=== PATIENT | male | born 1960 | race Caucasian/White ===

== ENCOUNTER 2018-08-25 10:46 | Emergency (ER) | payer MEDICAID ==
[~2018-08-25] VITALS: Ht 185.4 cm; Wt 136.1 kg
[~2018-08-25 10:46] MED LIST: BENA40TA56 PO; DOXY100C PO
[2018-08-25 10:54] VITALS: BP 139/93; PULSE 108; RESP 20; Ht 185.4 cm; Wt 136.1 kg
[2018-08-25] MEDS ORDERED: CEFTRIAXONE 250 MG INJ IM ONE (12:00)
[2018-08-25] MEDS ORDERED: AZITHROMYCIN 500 MG TAB PO ONE (12:00)
[2018-08-25] MEDS ORDERED: CLOT30CR24 TOP (12:11)
--- NOTE | 2018-08-25 12:19 | ERD ---
ER Documentation Chief Complaint Chief Complaint Comp[lains of burning on urination x 1 week HPI This is a 58-year-old male with a history of hypertension presents ED with complaints of burning with urination once discharge coming from penis times 1 week. Patient states that he had a new sexual partner 2 weeks ago and engaged in risky behavior. Patient believes he has an STD and would like to be treated for gonorrhea and chlamydia. Patient denies any ulcerations on penis, scrotal pain, scrotal swelling, fever, chills, nausea, vomiting, diarrhea, constipation, abdominal pain no other symptoms. No known drug allergies. ROS All systems reviewed and are negative except as per history of present illness. Medications Home Meds Active Scripts Ciprofloxacin Hcl* (Ciprofloxacin Hcl*) 500 Mg Tablet, 500 MG PO BID for 7 Days, TAB Prov:CASSIDY HEARN PA-C 08/25/18 Clotrimazole* (Clotrimazole* AF) 1% - 30 Gm Cream.gm., 1 APPLIC TOP BID for 7 Days, TUB Prov:CASSIDY HEARN PA-C 08/25/18 Reported Medications Doxycycline* (Vibramycin*) 100 Mg Capsule, 100 MG PO DAILY, EA 02/04/14 Benazepril Hcl* (Benazepril Hcl*) 40 Mg Tablet, 40 MG PO DAILY, TAB 02/04/14 Allergies Allergies: Coded Allergies: No Known Allergy (Unverified , 08/25/18) PMhx/Soc Medical and Surgical Hx: pt denies Medical Hx, pt denies Surgical Hx History of Surgery: No Anesthesia Reaction: No Hx Neurological Disorder: No Hx Respiratory Disorders: No Hx Cardiac Disorders: No Hx Psychiatric Problems: No Hx Miscellaneous Medical Probl: No Hx Alcohol Use: No Hx Substance Use: No Hx Tobacco Use: No Smoking Status: Never smoker Physical Exam Vitals Vital Signs Date Temp Pulse Resp B/P (MAP) Pulse Ox O2 O2 Flow FiO2 Time Delivery Rate 08/25/18 98.3 108 20 139/93 99 10:54 (108) Physical Exam Physical Exam Vitals signs: Reviewed by me. General: Well developed, well nourished, in no acute distress. Patient is awake and alert. Head: Normocephalic, atraumatic. Eyes: Normal conjunctiva, Pupils PERRLA, EOM intact grossly ENT: Pharynx is clear, Moist mucous membranes, external ears, nose and mouth normal Neck: Supple, no masses, lymphadenopathy or JVD Respiratory: Clear to auscultation bilaterally with no wheezing, rhonchi, rales, no distress Cardiovascular: RRR, no murmurs, rubs, or gallops Abdominal: Soft, protuberant, obese , non-tender, non-distended, no peritoneal signs : Exam: [employer] present No penile ulcerations, when foreskin is retracted there is curdy white discharge surrounding penile head, there is no penile swelling, Scrotum: Normal Testes/Epid: Non-tender w/ normal lie Cremaster: Reflex intact Lymph: No inguinal lymphadenopathy Neurologic: Alert and oriented, moving all extremities, normal speech, no focal weakness, no cerebellar signs. Normal mentation Skin: warm and dry, No rash Psych: Normal mood Results 24 hrs Laboratory Tests Test 08/25/18 12:00 Urine Color YELLOW Urine Clarity CLEAR Urine pH 5.0 Urine Specific [place] 1.027 Urine Ketones NEGATIVE mg/dL Urine Nitrite NEGATIVE mg/dL Urine Bilirubin NEGATIVE mg/dL Urine Urobilinogen NEGATIVE mg/dL Urine Leukocyte Esterase 2+ Brandon/ul Urine Microscopic RBC 6 /HPF Urine Microscopic WBC 7 /HPF Urine Squamous Epithelial Cells FEW /HPF Urine Hemoglobin 1+ mg/dL Urine Glucose 3+ mg/dL Urine Total Protein NEGATIVE mg/dl Current Medications Medications Dose Sig/[place] Start Time Status Last (Trade) Ordered Route PRN Stop Time Admin Dose Reason Admin 1,000 mg ONCE ONCE 08/25/18 DC 08/25/18 Azithromycin PO 12:00 12:18 (Zithromax) 08/25/18 12:01 Ceftriaxone 250 mg ONCE ONCE 08/25/18 DC 08/25/18 Sodium IM 12:00 12:18 (Rocephin) 08/25/18 12:01 Lidocaine 5 ml ONCE ONCE 08/25/18 DC 08/25/18 (Xylocaine INJ 12:30 12:18 1% (Mpf)) 08/25/18 12:31 Procedures/MDM LAB INTERPRETATION: Urinalysis shows 7 WBC, RBC 6, 2+ leukocyte esterase, Urine culture pending, gonorrhea chlamydia test pending ER COURSE: The patient was given azithromycin, Rocephin The medication was well tolerated and the patient reports improvement in symptoms. The patient was stable throughout ED course. I kept the patient and/or family informed of laboratory and diagnostic imaging results throughout the emergency room course. The patient was promptly evaluated and a treatment plan was devised based on H&P and other data. This plan was discussed with the patient who agreed and had no further questions or concerns prior to discharge. MEDICAL DECISION MAKIN-year-old uncircumcised male presents ED with complaints of burning with urination and discharge from penis times 1 week. Given patient's history of risky sexual behavior in a new sexual partner patient was treated prophylactically for gonorrhea and chlamydia. Gonorrhea and chlamydia lab test is pending at this time. Patient was given Rocephin and azithromycin in the emergency department. Physical examination is remarkable for some curdy white discharge when retracting penis head. This resembles more of a balanitis. The foreskin is easily retractable and there is mild erythema of the penile head with whitish curdy discharge. Urinalysis reflects UTI. Will treat patient for UTI as well. Patient was advised to engage in safe sex practices. History and physical examination other data not consistent with emergent processes including but not limited to paraphimosis, phimosis, priapism, together torsion, among other genitourinary emergencies. Patient's vitals are stable he can be managed with close outpatient follow-up. Advised patient follow-up with primary care in the next 48 hours. Return to ED with any worsening symptoms. DISPOSITION PLAN: We discussed follow up with the patient's primary care doctor within 24 to 48 hours. Patient counseled regarding my diagnostic impression and care plan. Prior to discharge all questions answered. Pt agrees with treatment plan and understands strict return precautions. Precautionary instructions provided including instructions to return to the ER if not improving or for any worsening or changing symptoms or concerns. SPECIALIST FOLLOW UP RECOMMENDED: None Patient has been advised to follow up with primary care in 1-2 days. Disclaimer: Inadvertent spelling and grammatical errors are likely due to EHR/dictation software use and do not reflect on the overall quality of patient care. Also, please note that the electronic time recorded on this note does not necessarily reflect the actual time of the patient encounter. Departure Diagnosis: Primary Impression: Penile discharge Additional Impressions: Balanitis Exposure to STD Screen for STD (sexually transmitted disease) UTI (urinary tract infection) Urinary tract infection type: site unspecified Hematuria presence: without hematuria Qualified Codes: N39.0 - Urinary tract infection, site not specified Condition: Stable Patient Instructions: Teens: STD Symptoms in Men, Balanitis, Understanding Urinary Tract Infections (UTIs) Referrals: COMMUNITY CLINICS YOU HAVE RECEIVED A MEDICAL SCREENING EXAM AND THE RESULTS INDICATE THAT YOU DO NOT HAVE A CONDITION THAT REQUIRES URGENT TREATMENT IN THE EMERGENCY DEPARTMENT. FURTHER EVALUATION AND TREATMENT OF YOUR CONDITION CAN WAIT UNTIL YOU ARE SEEN IN YOUR DOCTORS OFFICE WITHIN THE NEXT 1-2 DAYS. IT IS YOUR RESPONSIBILITY TO MAKE AN APPOINTMENT FOR FOLOW-UP CARE. IF YOU HAVE A PRIMARY DOCTOR --you should call your primary doctor and schedule an appointment IF YOU DO NOT HAVE A PRIMARY DOCTOR YOU CAN CALL OUR PHYSICIAN REFERRAL HOTLINE AT IF YOU CAN NOT AFFORD TO SEE A PHYSICIAN YOU CAN CHOSE FROM THE FOLLOWING [facility] CLINICS [facility] [address] [facility] [address] [facility] [facility] [address] [facility] [address] [facility] [address] [facility]. [facility] [address] Additional Instructions: Patient advised to return to the ED immediately for new or worsening symptoms. Patient advised to follow up with primary care provider in the next 24-48 hours. Patient verbalized understanding and agrees with treatment plan and course of action. If patient has no primary care they may follow up with one of the [facility] listed on the following page or one of the options listed below [facility] + [facility] [address] [place] [address] or [facility] [address] [place] [address] or [facility] [address] [place] [address] CASSIDY EHARN PA-C Aug 25, 2018 12:19
[2018-08-25] MEDS ORDERED: LIDOCAINE 1% (MPF) 5 ML VIAL INJ ONE (12:30)
[2018-08-25] MEDS ORDERED: CIPR500T4 PO (12:58)
== END 2018-08-25 13:27 | disposition home or self-care (01) ==
LOC: FTE 10:46
DX: N48.1 Balanitis (principal); I10 Essential (primary) hypertension; N39.0 Urinary tract infection, site not specified; Z20.2 Contact with and (suspected) exposure to infections with a predominantly sexual mode of transmission
CPT/HCPCS: 81001; 87591; 96372; J0696; Z7502; Z7610